=== PATIENT | male | born 2005 | race Hispanic/Latino ===

== ENCOUNTER 2023-11-03 18:14 | Inpatient (IN) | payer SELFPAY ==
[~2023-11-03] VITALS: Ht 180.3 cm; Wt 66.2 kg
[2023-11-03 18:53] LABS: BASOPHILS # (AUTO) 0.05 K/uL (0.00-0.20); BASOPHILS % (AUTO) 0.2 % (0.0-5.0); HEMATOCRIT 47.8 % (42-54); IMMATURE GRANULOCYTE ABSOLUTE 0.19 K/uL (0-1); LYMPHOCYTES # (AUTO) 1.5 K/uL (1.0-4.8); LYMPHOCYTES % (AUTO) 6.5 % (21.0-51.0); MEAN CORPUSCULAR HGB CONC 32.8 g/dL (32.0-36.0); MEAN CORPUSCULAR VOLUME 94.5 fL (80-100); MONOCYTES # (AUTO) 1.1 K/uL (0.1-1.0); MONOCYTES % (AUTO) 4.8 % (3.0-13.0); NEUTROPHILS # (AUTO) 19.9 K/uL (1.8-7.7); NEUTROPHILS % (AUTO) 87.7 % (40.0-77.0); PLATELET COUNT (AUTO) 375 K/uL (130-400); RED BLOOD CELL COUNT(AUTO) 5.06 MIL/uL (4.50-6.20); RED CELL DISTRIBUTION WIDTH 11.9 % (11.0-15.5); WHITE BLOOD COUNT (AUTO) 22.8 K/uL (4.8-10.8)
[2023-11-03] MEDS: ONDANSETRON 4MG INJ IVP ONE (18:59)
[2023-11-03] MEDS: PANTOPRAZOLE 40 MG/VIAL IVP ONE (18:59)
[2023-11-03] MEDS: 0.9%NACL 1000ML 1,000 ML IV ONE (18:59)
[2023-11-03 19:02] LABS: CREATININE 1.4 mg/dL (0.5-1.3); POTASSIUM 5.1 mmol/L (3.5-5.1)
[2023-11-03 19:06] LABS: BILIRUBIN,DIRECT 0.2 mg/dL (0.0-0.3); BILIRUBIN,TOTAL 0.7 mg/dL (0.2-1.0); MAGNESIUM 1.7 mg/dL (1.80-2.40); TOTAL PROTEIN, SERUM 8.4 g/dL (6.0-8.3)
[2023-11-03] MEDS ORDERED: IOHEXOL-350 75 ML VIAL IV ONE (19:59)
[2023-11-03 20:08] LABS: APPEARANCE,URINE CLEAR (CLEAR); BILIRUBIN,URINE NEGATIVE (NEGATIVE); COLOR,URINE LIGHT-YELLOW (YELLOW); GLUCOSE, URINE (UA) NEGATIVE (NEGATIVE); KETONES,URINE 60 mg/dL (NEGATIVE); LEUKOCYTE ESTERASE ,URINE NEGATIVE Leu/uL (NEGATIVE); NITRATE,URINE NEGATIVE (NEGATIVE); PROTEIN,URINE NEGATIVE (NEGATIVE); UROBILINOGEN,URINE 0.2 mg/dL (0.2-1.0)
[2023-11-03 20:10] LABS: ADD UA MICROSCOPIC YES
[2023-11-03 20:17] LABS: RBC,URINE 0-1 /HPF (0-1); WBC,URINE 0-1 /HPF (0-1)
[2023-11-03] MEDS: cefTRIAXone 1G VIAL IVPB ONE (20:37)
[2023-11-03] MEDS: [UNRECOGNIZED DRUG - OTHER] IV ONE (20:38)
[2023-11-03] MEDS ORDERED: GLUCAGON 1MG KIT 1 MG ML IM PRN (22:30)
[2023-11-03] MEDS ORDERED: morPHINE 2 MG SYG IVP PRN (22:30)
[2023-11-03] MEDS ORDERED: POTASSIUM CHLORIDE 20MEQ/100ML 100 ML IV PRN (22:30)
[2023-11-03] MEDS ORDERED: DEXTROSE 50%-WATER 50 ML DISP.SYRIN IV PRN (22:30)
[2023-11-03] MEDS ORDERED: 0.9%NACL 50ML IV SCH (22:40)
[2023-11-03] MEDS: MAGNESIUM 2GM PREMIX 50ML 50 ML IV PRN (22:52)
[2023-11-03] MEDS: LACTATED RINGERS 1000ML 1,000 ML IV SCH (22:52)
[2023-11-03] MEDS: ZOSYN 3.375GM +NS 50ML IVPB SCH (22:54)
[2023-11-03 23:02] VITALS: O2SAT 98
[2023-11-03] MEDS ORDERED: acetaMINOPHEN 650 MG SUPPOSITORY RC PRN (23:30)
[2023-11-03] MEDS ORDERED: ONDANSETRON 4MG INJ IVP PRN (23:30)
[2023-11-03 23:54] VITALS: BP 121/54; PULSE 60; RESP 18; TEMP 98.2
[2023-11-04] MEDS: acetaMINOPHEN 325 MG TAB PO PRN (00:15)
[2023-11-04] MEDS ORDERED: ketOROlac 30MG VIAL (30MG/ML) IVP ONE (00:30)
[2023-11-04 03:51] VITALS: BP 107/56; PULSE 76; RESP 16; TEMP 98.2
[2023-11-04 05:33] LABS: BASOPHILS # (AUTO) 0.04 K/uL (0.00-0.20); BASOPHILS % (AUTO) 0.2 % (0.0-5.0); HEMATOCRIT 38.5 % (42-54); IMMATURE GRANULOCYTE ABSOLUTE 0.08 K/uL (0-1); LYMPHOCYTES # (AUTO) 2.6 K/uL (1.0-4.8); LYMPHOCYTES % (AUTO) 14.7 % (21.0-51.0); MEAN CORPUSCULAR HEMOGLOBIN 30.9 pg (27.0-33.0); MEAN CORPUSCULAR HGB CONC 32.5 g/dL (32.0-36.0); MEAN CORPUSCULAR VOLUME 95.3 fL (80-100); MONOCYTES # (AUTO) 1.6 K/uL (0.1-1.0); MONOCYTES % (AUTO) 9.3 % (3.0-13.0); NEUTROPHILS # (AUTO) 13.3 K/uL (1.8-7.7); NEUTROPHILS % (AUTO) 75.3 % (40.0-77.0); PLATELET COUNT (AUTO) 282 K/uL (130-400); RED BLOOD CELL COUNT(AUTO) 4.04 MIL/uL (4.50-6.20); RED CELL DISTRIBUTION WIDTH 11.9 % (11.0-15.5); WHITE BLOOD COUNT (AUTO) 17.6 K/uL (4.8-10.8)
[2023-11-04 05:41] LABS: CREATININE 1.2 mg/dL (0.5-1.3); MAGNESIUM 1.7 mg/dL (1.80-2.40); PHOSPHORUS 4.5 mg/dL (2.5-4.9); POTASSIUM 4.1 mmol/L (3.5-5.1)
[2023-11-04 08:00] VITALS: BP 125/51; PULSE 53; RESP 20; TEMP 98.2
[2023-11-04 12:00] VITALS: BP 117/51; PULSE 53; RESP 20; TEMP 97.7
== END 2023-11-04 13:45 | disposition home or self-care (01) | DRG 872 ==
LOC: EDH 18:14 → EDHIP 18:15 → 3AH 23:58
PROVIDERS: ADMIT Hospitalist; ATTEND Hospitalist
DX: A41.9 Sepsis, unspecified organism (principal); E87.20 Acidosis, unspecified; N17.9 Acute kidney failure, unspecified; R65.20 Severe sepsis without septic shock; K38.1 Appendicular concretions; E86.0 Dehydration; E83.42 Hypomagnesemia; R73.9 Hyperglycemia, unspecified; K29.70 Gastritis, unspecified, without bleeding; K59.00 Constipation, unspecified
CPT/HCPCS: 36415; 71045; 74177; 80048; 80076; 81001; 83605; 83690; 83735; 84100; 84145; 85025; 87040; 96365; 96375; G0378; J0696; J2270; J2405; J2470; J2543; J3475; J7030; Q9967; A4600

== ENCOUNTER 2024-10-06 07:09 | Emergency (ER) | payer OTHER ==
[~2024-10-06] VITALS: Ht 180.3 cm; Wt 68.0 kg
[~2024-10-06 07:09] MED LIST: AMOX1TAB16 PO; BENZ-39 PO; OSEL75 PO
--- NOTE | 2024-10-06 07:47 | ERN ---
General Chief Complaint: Laceration/Avulsion Stated Complaint: LEFT 2ND FINGER LAC Time Seen by MD: 07:02 Source: patient History of Present Illness Initial Comments Patient is a 18-year-old male coming in complaining of left hand 2nd digit laceration. Per patient he had cut himself last night at 11 p.m.. States he cleaned it but noticed it was not closing so he is here for further evaluation Allergies: Coded Allergies: No Known Drug Allergies (Unverified Allergy, Unknown, 11/03/23) Home Meds Active Scripts Benzonatate (Tessalon Perles) 100 Mg Cap, 100 MG PO TID for cough, #30 CAP 0 Refills Prov:SAJI DALY TRAIN CALLER 05/25/24 Amoxicillin/Potassium Clav (Amox Tr-K Clv 875-125 mg Tab) 875 Mg-125 Mg Tablet, 1 EACH PO BID for 7 Days, #14 TAB 0 Refills Prov:SAJI DALY NP 05/25/24 Oseltamivir Phosphate (Tamiflu) 75 Mg Cap, 75 MG PO BID for 5 Days, #10 CAP Prov:SAJI DALY NP 05/25/24 Past Medical History Past Medical History: No Pertinent History Past Surgical History: Other Surgical History Other: HAND, WRIST ROS Dictation CONSTITUTIONAL: No chills, no fever, no weakness, no diaphoresis, no malaise. HEAD/FACE: No signs of trauma. EENT: No eye pain, no blurred vision, no tearing, no double vision, no ear pain, no ear discharge, no nose pain, no nasal congestion, no throat pain, no throat swelling, no mouth pain. RESPIRATORY: No cough, no orthopnea, no SOB, no stridor, no wheezing. CARDIOVASCULAR: No chest pain, no edema, no palpitations, no syncope. GASTROINTESTINAL/ABDOMINAL: No abdominal pain, no constipation, no diarrhea, no nausea, no vomiting. GENITOURINARY: No abnormal discharge, no dysuria, no frequent urination, no hematuria. No complaints of pain in the genitals. MUSCULOSKELETAL: No back pain, no gout, no joint pain, no joint swelling, no muscle pain, no muscle stiffness, no neck pain. INTEGUMENTARY: No change in color, no change in hair/nails, no dryness, no lesion, no lumps, no rash. NEUROLOGICAL/PSYCH: No anxiety, not depressed, no emotional problem, no headache, no numbness, no pre-existing deficit, no history of seizures, no tremors, no weakness. HEMATOLOGIC/LYMPHATIC: Not anemic, no history of blood clots, no apparent bleeding, no bruising, glands not swollen. All Systems Negative, Except as Noted. Physical Exam Physical Exam Dictation VITAL SIGNS: Reviewed. GENERAL APPEARANCE: Alert, oriented x3, no acute distress, obese. HEAD AND FACE: Non-traumatic. EYES: PERRL, pink conjunctivas, eyelid no trauma, anterior chamber clear. EARS: Pinnas intact and no signs of trauma or erythema. Ear canals clear and no discharge. TMs no erythema. NOSE: No discharge, no bleeding. OROPHARYNX: Mouth normal, teeth no caries, tongue pink. Pharynx clear, no erythema. Tonsils no exudates, no abscesses noted. Mucous membrane moist. NECK: Supple, non-tender, no thyromegaly, no masses, no JVD, no bruits. BREAST: Deferred. CHEST: No tenderness, no crepitus, no paradoxical movement, no retractions. LUNGS: Clear, well-ventilated, symmetric, no rales, no wheezing, no rhonchi, no stridor, good breath sounds bilaterally. HEART: Regular rate, regular rhythm, no murmur, no gallops. VASCULAR: No peripheral edema. ABDOMEN: Soft, positive bowel sounds, nondistended, no guarding, nontender, no rebound, no masses no hepatomegaly, no splenomegaly, no Zhao's sign, no hernias. RECTAL: Deferred. GENITAL: Deferred. NEUROLOGICAL: Normal speech, gross motor function intact, gross sensory function intact. MUSCULOSKELETAL: Neck nontender, full range of motion, back nontender, full range of motion. EXTREMITIES: Nontender, full range of motion. SKIN: Color pink, dry, no turgor, no rash, no lacerations, no abrasions, no contusions. LYMPHATICS: Deferred. Results Laboratory and Microbiology Labs Reviewed?: Yes MDM MDM: Differential diagnosis: Rationale: Tests considered and ordered secondary to shared decision making i nclude: Previous outside records reviewed: Old ER visits. Risk of complication and/or morbidity or mortality of patient management: None Medications-Per medication reconciliation Need for hospitalization: Patient does not meet criteria for hospitalization. Need for emergency major/minor surgery: No There are no social concerns with this patient. Prescription drug management Prescriptions will include symptomatic care Patient's prior external medical records from other ER visits were reviewed by me as indicated. Prior testing and results from previous visits were reviewed. Prior tests were taken into account with medical decision making and resource utilization, independent historian/historians were used to obtain complete medical history. I independently interpreted the test that were performed, results were reviewed by me and considered findings on radiology if ordered. Medical management and examination interpretation discussions were had by me with other qualified healthcare professionals as indicated for the patient's care. ED Course Orders Procedure Category Date Status Time Lidocaine Hcl 1% 20ml PHA 10/06/24 Logged Vial (Lidocaine Hc 07:37 Tetanus,Diphtheria PHA 10/06/24 Complete Tox [Adult] (Diphther 08:00 Acetaminophen 500mg PHA 10/06/24 Complete Tab (Tylenol 500mg T 08:00 Current Medications Medications (Trade) Dose Ordered Sig/Nora Route PRN Reason Start Time Stop Time Status Last Admin Dose Admin Acetaminophen (TYLenol 500MG TAB) 1,000 mg ONCE ONCE PO 10/06/24 08:00 10/06/24 08:01 DC 10/06/24 07:55 Lidocaine HCl (Lidocaine HCl 1% 20ml Vial) 20 ml ONCE STAT INJ 10/06/24 07:37 10/06/24 07:39 DC 10/06/24 07:55 Tetanus/ Diphtheria Toxoids Adsorbed (DiphthERIA-teTANUS TOXOID [ADULT]/ DECAVAC) 0.5 ml ONCE ONCE IM 10/06/24 08:00 10/06/24 08:01 DC 10/06/24 07:59 Vital Signs Date Time Temp Pulse Resp B/P (MAP) Pulse Ox O2 Delivery O2 Flow Rate FiO2 10/06/24 07:41 98.2 54 16 114/51 97 Room Air* 0 21 10/06/24 07:10 98.2 54 16 114/51 97 Room Air 0 Procedure Dictation Laceration of left hand 2nd digit 2 cm linear length Laceration/Wound Repair Laceration/Wound Repair : Wound Location: upper extremity Wound's Depth, Shape: superficial, linear Wound Explored: clean Irrigated w/ Saline (ccs): 100 Betadine Prep?: Yes Anesthesia: 1% Lidocaine Volume Anesthetic (ccs): 2 Wound Debrided: minimal Wound Repaired With: sutures Suture Size/Type: 5:0 Number of Sutures: 2 Layer Closure?: Yes DX & DISP Disposition: Discharge Departure Impression: Primary Impression: Finger laceration Condition: Stable Scripts Bacitracin (Bacitracin) 500 Unit/Gram Oint...g. 1 APPL TP BID for 7 Days, #15 GM 0 Refills apply to affected area(s) Prov: SURYA VYAS MD 10/06/24 Additional Instructions: FOLLOW-UP WITH PRIMARY CARE PROVIDER IN 1 TO 2 DAYS. TAKE MEDICATIONS DIRECTED HERE IN THE EMERGENCY ROOM. OKAY TO CONTINUE HOME MEDICATIONS UNLESS OTHERWISE DISCUSSED DURING YOUR VISIT IN THE EMERGENCY ROOM TODAY. RETURN TO YOUR NEAREST EMERGENCY ROOM IF SYMPTOMS WORSEN OR IF THERE IS NO IMPROVEMENT. CALL 911 IF YOU NEED IMMEDIATE ASSISTANCE. TAKE TYLENOL [id number] NEEDED AND IF NO CONTRAINDICATIONS ARE PRESENT. INCREASE ORAL HYDRATION. A WOUND CULTURE OR URINE CULTURE WAS ORDERED HERE IN THE EMERGENCY ROOM DEPARTMENT PLEASE FOLLOW-UP WITH PRIMARY CARE PROVIDER AND ADVISE THEM TO GET REPORTS FROM OUR FACILITY. IF YOU HAD ANY EDDI WRAP/SPLINTS THAT WERE APPLIED HERE, PLEASE DO NOT REMOVE THEM UNTIL YOU SEE YOUR PRIMARY CARE OR SPECIALTY. Referrals: Referrals: CHELSY MASTERS MD (PCP) Time of Disposition: 08:16 SURYA VYAS MD Oct 06, 2024 07:47
[2024-10-06] MEDS: LIDOCAINE HCL 1% 20 ML VIAL INJ STA (07:55)
[2024-10-06] MEDS ORDERED: BACI30OI6 TP (08:17)
[2024-10-06 08:25] VITALS: BP 188/55; PULSE 56; RESP 16; TEMP 98.1; O2SAT 97
== END 2024-10-06 08:28 | disposition home or self-care (01) ==
LOC: EDH 07:09
DX: S61.211A Laceration without foreign body of left index finger without damage to nail, initial encounter (principal); Z79.899 Other long term (current) drug therapy; W45.8XXA Other foreign body or object entering through skin, initial encounter; Y93.89 Activity, other specified; Y92.89 Other specified places as the place of occurrence of the external cause; Y99.8 Other external cause status
CPT/HCPCS: 12001; 12031; 90471; 90714; 99283; 99284